=== PATIENT | female | born 1955 | race Two or more races ===

== ENCOUNTER 2017-04-03 06:12 | Day surgery (SDC) | payer OTHER ==
[2017-04-02 13:46] VITALS: BMI 35.2
[2017-04-03] MEDS ORDERED: VASOPRESSIN 20 UNITS/ML VIAL IV ONE (07:29)
[2017-04-03] MEDS ORDERED: PROPOFOL 20 ML ONE (08:03)
[2017-04-03] MEDS ORDERED: LIDOCAINE HCL/PF 2% SDV 5ML VIAL ONE (08:03)
[2017-04-03] MEDS ORDERED: MIDAZOLAM HCL 2 MG/2 ML SINGLE DOSE VIAL ONE (08:03)
[2017-04-03] MEDS ORDERED: ceFAZolin SODIUM 1 GM VIAL IVPB ONE (08:26)
[2017-04-03] MEDS ORDERED: ceFAZolin SODIUM 1 GM VIAL ONE (08:27)
[2017-04-03] MEDS ORDERED: IBUPROFEN 800 MG/8 ML IJ IVPB PRN (08:59)
[2017-04-03] MEDS ORDERED: ACETAMINOPHEN 1000 MG/100 ML VIAL (NON FORMULARY) IVPB ONE ×2 (08:59→09:30)
[2017-04-03] MEDS ORDERED: ONDANSETRON 4 MG/2 ML VIAL IVPUSH PRN (08:59)
[2017-04-03] MEDS ORDERED: LACTATED RINGERS SOLUTION 1,000 ML IV SCH (09:00)
[2017-04-03] MEDS ORDERED: ACETAMINOPHEN INJECTION 100 ML IVPB ONE (09:29)
--- NOTE | 2017-04-03 09:45 | OP ---
DATE OF OPERATION: 04/03/2017 PRIMARY SURGEON: Eric More MD PREOPERATIVE DIAGNOSIS: Status post sling 3 days ago, now with obstructive voiding with residual volume 300 mL. Assessment is most likely tied sling. POSTOPERATIVE DIAGNOSIS: A tied sling. DESCRIPTION OF PROCEDURE: After adequate anesthesia, patient was prepped and draped in dorsal lithotomy position. A Ortega catheter was inserted, and bladder drained of clear urine. The old incision site was incised. The sling was exposed, and indeed, was noted to be tied at the bladder neck. The sling arms were grasped bilaterally and pulled down in total of approximately 0.5 cm. The sling came off the urethra easily with no complications noted. The anterior vaginal wall was then closed using 2-0 Vicryl suture in a continuous fashion. The patient will be placed on Macrodantin because of the high residual volumes that she had experienced and the few catheterizations that were performed. The patient will follow up with me in a week to check her residual volumes unless otherwise indicated. Eugenio [id number]
[2017-04-03] MEDS ORDERED: [UNRECOGNIZED DRUG - OTHER] PO SCH (10:00)
[2017-04-03] MEDS ORDERED: VITAMIN D3 PO SCH (10:00)
[2017-04-03] MEDS ORDERED: CHOLECALCIFEROL (VITAMIN D3) 400 UNIT TABLET (FP) PO SCH (10:00)
[2017-04-03] MEDS ORDERED: IRON PS COMPLEX PO SCH (10:00)
[2017-04-03] MEDS ORDERED: VIT K1 PO SCH (10:00)
[2017-04-03] MEDS ORDERED: CALCIUM CARB PO SCH (10:00)
[2017-04-03] MEDS ORDERED: B12 PO SCH (10:00)
[2017-04-03] MEDS ORDERED: PATIENT'S OWN MEDICATION (NON-FORMULARY) (Simvastatin [Simvastatin] 40 MG) PO SCH (10:00)
[2017-04-03] MEDS ORDERED: PATIENT'S OWN MEDICATION (NON-FORMULARY) (Lisinopril [Zestril] 2.5 MG) PO SCH (10:00)
[2017-04-03] MEDS ORDERED: [UNRECOGNIZED DRUG - OTHER] PO SCH (10:00)
[2017-04-03] MEDS ORDERED: FOLIC ACID PO SCH (10:00)
[2017-04-03 10:10] VITALS: TEMP 98.4
[2017-04-03 10:48] VITALS: PULSE 58
[2017-04-03 11:55] VITALS: BP 139/78
== END 2017-04-03 11:45 | disposition home or self-care (01) ==
LOC: JASU-SURG 06:12
PROVIDERS: ATTEND Obstetrics & Gynecology Female Pelvic Medicine and Reconstructive Surgery
PROC: 0TW Urinary System, Revision (ICD-10-PCS; principal; 2017-04-03 08:00)
DX: T83.89XA Other specified complication of genitourinary prosthetic devices, implants and grafts, initial encounter (principal); N39.3 Stress incontinence (female) (male); E11.9 Type 2 diabetes mellitus without complications; N13.8 Other obstructive and reflux uropathy
CPT/HCPCS: 82962; 94760